=== PATIENT | male | born 1955 | race Caucasian/White ===

== ENCOUNTER 2022-01-06 11:03 | Emergency (ER) | payer MEDICAID ==
[~2022-01-06] VITALS: Ht 182.9 cm; Wt 78.0 kg
[2022-01-06] MEDS ORDERED: LIDOCAINE HCL/PF 1% 10 MG/ML 5ML VIAL INFIL ONE (11:30)
[2022-01-06] MEDS ORDERED: MORPHINE SULFATE 4 MG/ML CPJ (NOT FOR IM USE) IV ONE (11:30)
[2022-01-06] MEDS ORDERED: HYDR-4001 MT (12:41)
[2022-01-06] MEDS ORDERED: IBUP-2029 MT (12:41)
[2022-01-06 13:51] VITALS: BP 101/56
== END 2022-01-06 14:00 | disposition left against medical advice (07) ==
LOC: ER 11:03
DX: S52.532A Colles' fracture of left radius, initial encounter for closed fracture (principal); W01.0XXA Fall on same level from slipping, tripping and stumbling without subsequent striking against object, initial encounter; Y93.89 Activity, other specified; Y92.89 Other specified places as the place of occurrence of the external cause
CPT/HCPCS: 73110; 96374; 99283; J2270; J3490

== ENCOUNTER 2022-01-27 17:45 | Emergency (ER) | payer MEDICARE, MEDICAID ==
[~2022-01-27] VITALS: Ht 182.9 cm; Wt 82.0 kg
[~2022-01-27 17:45] MED LIST: HYDR-4001 MT; IBUP-2029 MT
[2022-01-27] MEDS ORDERED: IBUP-2029 MT (21:40)
[2022-01-27 22:27] VITALS: BP 126/71
[2022-01-28] MEDS ORDERED: IBUP-2029 MT (10:22)
== END 2022-01-27 22:28 | disposition home or self-care (01) ==
LOC: ER 17:45
DX: S52.532A Colles' fracture of left radius, initial encounter for closed fracture (principal); S52.692A Other fracture of lower end of left ulna, initial encounter for closed fracture; X58.XXXA Exposure to other specified factors, initial encounter; Y93.89 Activity, other specified; Y92.89 Other specified places as the place of occurrence of the external cause
CPT/HCPCS: 29125; 73100; 99283

== ENCOUNTER 2022-01-28 09:26 | Emergency (ER) | payer MEDICARE, MEDICAID ==
[~2022-01-28] VITALS: Ht 172.7 cm; Wt 77.0 kg
[2022-01-28 09:29] VITALS: BP 92/57
[2022-01-28] MEDS ORDERED: IBUP-2029 MT (10:22)
== END 2022-01-28 10:34 | disposition home or self-care (01) ==
LOC: ER 09:26
DX: S52.532A Colles' fracture of left radius, initial encounter for closed fracture (principal); X58.XXXA Exposure to other specified factors, initial encounter; Y93.89 Activity, other specified; Y92.89 Other specified places as the place of occurrence of the external cause; Y99.8 Other external cause status
CPT/HCPCS: 99282